=== PATIENT | female | born 1960 | race Caucasian/White ===

== ENCOUNTER 2016-08-05 16:08 | Emergency (ER) | payer MEDICAID ==
[2016-08-05 16:48] VITALS: BMI 28.5
[2016-08-05 16:51] VITALS: TEMP 98.4
[2016-08-05] MEDS ORDERED: HYDROmorphone 1 MG INJECTION IV ONE ×2 (17:07→18:20)
--- NOTE | 2016-08-05 17:41 | DIRPT ---
CLINICAL DATA: Fall. EXAM: LEFT ELBOW - COMPLETE 3+ VIEW COMPARISON: None. FINDINGS: There is no evidence of fracture, dislocation, or joint effusion. There is no evidence of arthropathy or other focal bone abnormality. Soft tissues are unremarkable. IMPRESSION: Negative. Electronically Signed By: Marisa Winston M.D. On: 08/05/2016 17:38
--- NOTE | 2016-08-05 17:42 | DIRPT ---
CLINICAL DATA: Fell playing in the snow EXAM: LEFT WRIST - COMPLETE 3+ VIEW COMPARISON: None. FINDINGS: Comminuted fracture distal radial metaphysis with overriding at the fracture site. Fracture line extends into the radiocarpal joint. There is a moderately displaced fracture of the ulnar styloid process which is displaced proximally and in an ulnar direction. There is moderate apex volar angulation involving the radial fracture. IMPRESSION: Fractures of the distal radius and ulna Electronically Signed By: Kristian Horton M.D. On: 08/05/2016 17:39
--- NOTE | 2016-08-05 18:00 | EDPRACDOC ---
- General Information Information Source: Patient - History of Present Illness Onset: 1 HOUR HPI: PT PRESENTS TODAY WITH LEFT WRIST PAIN AFTER FOOS[employer]. APPARENT DEFORMITY. NO OTHER COMPLAINTS. Location: Reports: Radial Mechanism: Reports: FOOSH Circumstances: Reports: Fall Pain Severity: Reports: Severe Associated Signs and Symptoms: Reports: None <Julia Bernabe - Last Filed: 08/05/16 17:58> <Kinsey Escobedo - Last Filed: 08/05/16 19:50> <Yarelis Bunn - Last Filed: 08/05/16 20:17> - General Information Chief Complaint: Wrist Pain Stated Complaint: FALL Time Seen by Provider: 08/05/16 16:59 Home Medications: Home Medications Fluoxetine [Prozac] 40 mg PO DAILY 05/30/16 Oxycodone Immediate Release [Oxycodone Immediate Release (OxyIR)] 5 - 15 mg PO Q4H PRN #30 tab 08/05/16 Allergies/Adverse Reactions: Allergies Allergy/AdvReac Type Severity Reaction Status Date / Time No Known Allergies Allergy Verified 08/05/16 16:48 ED Past Medical History - History Reviewed Yes Nurses notes reviewed and agree except as marked - Patient Medical History Respiratory History: Reports: COPD Psychological History: Denies: Depression Systemic History: Reports: Hyperthyroidism, Hypothyroidism - Social Medical History Smoking Status: Heavy tobacco smoker (5 or more cigarettes/day or daily pipe/ cigar) <Julia Bernabe - Last Filed: 08/05/16 17:58> EDM Review of Systems - Review of Systems ROS Negative Except as Marked: Yes All systems reviewed and were negative except as marked Constitutional: No Symptoms Reported Respiratory: No Symptoms Reported Cardiovascular: No Symptoms Reported Gastrointestinal: No Symptoms Reported Neurological: No Symptoms Reported Musculoskeletal: Wrist Integumentary: No Symptoms Reported <Julia Bernabe - Last Filed: 08/05/16 17:58> - Physical Exam Constitutional: Alert, Distress Oriented to: Time, Person, Place Last recorded Vital Signs: Last Vital Signs Temp 98.4 F 08/05/16 16:48 Pulse 86 08/05/16 17:31 Resp 22 08/05/16 17:31 BP 163/83 08/05/16 17:31 Pulse Ox 97 08/05/16 17:31 Oxygen Pulse Oxygen Saturation 97 O2 Device Room Air Oxygen Flow Rate Fraction of Inspired Oxygen ( FIO2) - HEENT Head: Normal Eye Exam: Normal Neck: Normal, Denies Pain, Midline - Respiratory/Cardiovascular Respiratory: Normal - CTA Cardiovascular: Normal - GI Palpation: Normal Tenderness: Non tender - Musculoskeletal Back: Normal Extremities: Other (APPARENT DEFORMITY TO LEFT WRIST; WRIST SKIN FEELS COOL, BUT RADIAL PULSES INTACT; CAP REFILL SLUGGISH.) - Integumentary Skin: Normal Lymphatics: Normal - Neurologic Cerebellar: Normal Mood Description: Normal Thought: Coherent Perception: Normal <Julia Bernabe - Last Filed: 08/05/16 17:58> - Physical Exam Last recorded Vital Signs: Last Vital Signs Temp 98.4 F 08/05/16 16:48 Pulse 84 08/05/16 18:36 Resp 18 08/05/16 18:36 BP 162/82 08/05/16 18:36 Pulse Ox 97 08/05/16 18:36 Oxygen Pulse Oxygen Saturation 97 O2 Device Room Air Oxygen Flow Rate Fraction of Inspired Oxygen ( FIO2) <Kinsey Escobedo - Last Filed: 08/05/16 19:50> - Physical Exam Last recorded Vital Signs: Last Vital Signs Temp 98.4 F 08/05/16 16:48 Pulse 84 08/05/16 18:36 Resp 18 08/05/16 18:36 BP 162/82 08/05/16 18:36 Pulse Ox 97 08/05/16 18:36 Oxygen Pulse Oxygen Saturation 97 O2 Device Room Air Oxygen Flow Rate Fraction of Inspired Oxygen ( FIO2) <Yarelis Bunn - Last Filed: 08/05/16 20:17> ED Wrist Problem Exam Wrist Symptoms: Swelling, Deformity, Limited ROM, Severe Tenderness Hand Symptoms: Normal Forearm Symptoms: Normal Distal Function/Circulation: Capillary Refill (DELAYED) - Integumentary Skin: Ecchymosis Lymphatics: Normal <Julia Bernabe - Last Filed: 08/05/16 17:58> ED Procedures - Fracture/Dislocation Reduction Informed of risks, benefits and alternatives described.: Yes Informed Consent Signed: Written Indication: Dislocation, Fracture Attempted reduction was performed: Yes Reduction Attempts: 1 Sedation performed under my direct supervision See flowsheet: No (Dr Bunn) Joint Reduction Site: Other (L wrist) Pre-Procedure NV Exam: Yes After procedure patient's symptoms were relieved: Yes Post Procedure Nerve Exam: full sensation in all fingers and thumb, cap refill less than 3 secs <Kinsey Escobedo E - Last Filed: 08/05/16 19:50> - Splinting 1st splint Location: LEFT WRIST Hand-Made Type: orthoglass Splint: sugar-tong Pre-Proc Neuro Vasc Exam: normal Post-Proc Neuro Vasc Exam: normal Other Devices: Sling <Yarelis Bunn N - Last Filed: 08/05/16 20:17> - Physician Consulted Orthopedics Time Called: 18:00 Provider Called: Elieser García <Julia Bernabe K - Last Filed: 08/05/16 17:58> <Kinsey Escobedo - Last Filed: 08/05/16 19:50> - Departure Education/Counseling Given To: Patient, Family Member Education/Counseling Given Regarding: Diagnosis, Treatment, Prognosis - Physician Consulted ORTHO #2 Time Called: 20:08 Provider Called: Elieser García <Yarelis Bunn N - Last Filed: 08/05/16 20:17> - Departure Condition: Stable Final Diagnosis: Closed fracture distal radius and ulna Qualifiers: Encounter type: initial encounter Laterality: left Qualified Code(s): S52.502A - Unspecified fracture of the lower end of left radius, initial encounter for closed fracture; S52.602A - Unspecified fracture of lower end of left ulna, initial encounter for closed fracture Instructions: Wrist Fracture in Adults (ED), RICE: Routine Care for Injuries Referrals: Elieser García MD [Staff Physician] - One Week Prescriptions: Oxycodone Immediate Release [Oxycodone Immediate Release (OxyIR)] 5 - 15 mg PO Q4H PRN #30 tab PRN Reason: Pain ED-Moderate Sedation Procedure - Procedure Indication: LEFT WRIST REDUCTION Informed of risks, benefits and alternatives described.: Yes Informed Consent Signed: Written ASA Status: 1 Physician Performing Procedure: Yes Physician Providing Sedation: Bunn Procedure Type: LEFT WRIST REDUCTION Procedure Start Time: 19:40 - Patient Information Patient Age: 56 History and Physical Completed: Yes - Oxygen Oxygen Delivery Method: Nasal Cannula - Alarm Mechanic Alarm Mechanic: Yes EKG Rhythm: Sinus Rhythm - Medications Dose #1 Administration Time: 19:40 Medication Given: Propofol Dose Given: 90 Medication Unit: mg Route: IV Patient Reaction: Awake Dose #2 Administration Time: 19:42 Medication Given: Propofol Dose Given: 30 Medication Unit: mg Route: IV Patient Reaction: Awake Dose #3 Administration Time: 19:44 Medication Given: Propofol Dose Given: 30 Medication Unit: mg Route: IV Patient Reaction: Awake - Assessment Skin: Warm - Adverse Event Adverse Event: No <Yarelis Bunn - Last Filed: 08/05/16 20:17>
[2016-08-05] MEDS ORDERED: PROPOFOL 200 MG/20 ML VIAL IV ONE (19:35)
--- NOTE | 2016-08-05 20:09 | DIRPT ---
CLINICAL DATA: Postreduction. EXAM: LEFT WRIST - 2 VIEW COMPARISON: Wrist radiograph from the same date. FINDINGS: Cast material overlies the wrist. There has been interval reduction of transverse comminuted posteriorly dislocated intra-articular fracture of the distal radius with near anatomic alignment. Again seen is avulsion fracture of the ulnar styloid process. IMPRESSION: Status post reduction with near anatomic alignment of previously described distal radial shaft intra-articular fracture. Avulsion fracture of ulnar styloid process also demonstrates interval reduction with satisfactory alignment. Electronically Signed By: Alvarado Archibald M.D. On: 08/05/2016 20:07
[2016-08-05] MEDS ORDERED: OXYCODONE HCL 5 MG TABLET PO ONE (20:17)
[2016-08-05 21:29] VITALS: BP 160/73; PULSE 92
== END 2016-08-05 21:25 | disposition home or self-care (01) ==
LOC: ED 16:08
DX: S52.502A Unspecified fracture of the lower end of left radius, initial encounter for closed fracture (principal); S52.602A Unspecified fracture of lower end of left ulna, initial encounter for closed fracture; W18.30XA Fall on same level, unspecified, initial encounter; Y93.9 Activity, unspecified
CPT/HCPCS: 25605; 73080; 73100; 73110; 96374; 96376; 99152; 99284; J1170; J3490

== ENCOUNTER → 2016-08-24 | Day surgery (SDC) | payer MEDICAID ==
[2016-08-05 16:48] VITALS: BMI 28.5
[~2016-08-24] MED LIST: BUPIVACAINE 0.5% 30 ML VIAL ONE; CEFAZOLIN 1 GM VIAL IV ONE; CEFAZOLIN 1 GM VIAL ONE; DEXAMETHASONE 4 MG/ML VIAL IV ONE; EPHEDrine 50 MG/ML VIAL IM ONE; FENTANYL 100 MCG/2 ML VIAL IV PRN; FENTANYL 100 MCG/2 ML VIAL ONE; FENTANYL 250 MCG/5 ML VIAL IV ONE; GLYCOPYRROLATE 1 MG VIAL IM ONE; HYDROmorphone 1 MG INJECTION IV PRN; HYDROmorphone 1 MG INJECTION ONE; LABETALOL 20 MG/4 ML SYRINGE IV PRN; LIDOCAINE 1% 30 ML VIAL (PRESERVATIVE FREE) ONE; LIDOCAINE 100 MG PFS IV ONE; MEPERIDINE 25 MG/ML TUBEX IV PRN; MIDAZOLAM 2 MG/2 ML VIAL IV ONE; ONDANSETRON HCL 4 MG ODT TAB PO PRN; ONDANSETRON HCL 4 MG/2 ML VIAL IV ONE; ONDANSETRON HCL 4 MG/2 ML VIAL IV PRN; PROPOFOL 200 MG/20 ML VIAL IV ONE; hydrALAZINE 20 MG/ML VIAL IV PRN
--- NOTE | 2016-08-24 07:05 | HIM.ANES ---
Anesthesia Evaluation & Plan Consented Procedure: OPEN REDUCTION INTERNAL FIXATION LEFT DISTAL RADIUS AND OTHER PROCEDURES INDICATED - Focused Review of Systems Now: No Cardiac History: No: Hx Cardiac Disorders HEENT: Yes: Cataracts, Cataract Removal (BILATERAL--JUNE 2016) No: Other HEENT Problems Respiratory: Yes: Hx Chronic Obstructive Pulmonary Disease (COPD), Hx Pneumonia (2016) No: Hx Recent Cold/Flu Gastrointestinal: No: Hx Gastrointestinal Disorders Neurological/Musculoskeletal: No: Hx Neurological Disorders Psychological: Yes Hx Depression, Yes Hx Mental/Emotional Disorders HX Other Psyco/Soc Problems: DEPRESSION Endocrine: Yes: Hx Hyperthyroidism, Hx Hypothyroidism Blood/Autoimmune: No: Hx AIDS, Hx Hepatitis (type) Smoking Status: Heavy tobacco smoker (5 or more cigarettes/day or daily pipe/ cigar) Surgical History: Yes: Knee (6 knee surgeries and a TKR 2001) - Focused Physical Exam NPO since: 08/23/161999 Mallampati: Class II Thyromental Distance: Greater than 3 Neck: Full Range of Motion Dental: Edentulous Cardiovascular/Chest: Normal (RRR no mumurs or rubs.) Respiratory: Lungs clear. negative: Rhonchi, Wheezing Any problems with anesthesia, including nausea and vomiting?: No Any relatives with a history of Malignant Hyperthermia?: No Does patient have a history of Malignant Hyperthermia?: No Beta Waldo given (if appropriate): N/A Does the patient have a history of Motion Sickness-: No Other: Allergies Allergy/AdvReac Type Severity Reaction Status Date / Time No Known Allergies Allergy Verified 08/24/16 06:45 Home Medications Medication Instructions Recorded Last Taken Type Fluoxetine [Prozac] 40 mg PO DAILY 05/30/16 08/23/16 09:00 History Oxycodone Immediate Release 5 - 15 mg PO Q4H PRN #30 tab 08/05/16 08/23/16 19: 00 Rx [Oxycodone Immediate Release (OxyIR)] Height and Weight Patient's height 5 ft 7 in Patient's weight 77.111 kg BMI 28.5 Vital Signs Temperature 98.9 F 08/24/16 06:43 Pulse Rate 79 08/24/16 06:43 Respiratory Rate 18 08/24/16 06:43 Blood Pressure 133/80 08/24/16 06:43 Pulse Oxygen Saturation 99 08/24/16 06:43 METS - Level of Activity: Climbing stairs(1 flight),walking level ground, running short distance - Anesthetic Plan Anesthesia Type: General ASA Class: 2 -: I have examined this patient and reviewed the medical record. The patient has been assessed prior to anesthesia. Risks and benefits of anesthesia and anesthetic technique options have been discussed and all questions answered. The patient accepts the risk and desires me to proceed with the planned anesthetic.
[2016-08-24] MEDS: FENTANYL 100 MCG/2 ML VIAL IV PRN ×2 (08:41→08:51)
[2016-08-24 08:52] VITALS: TEMP 98.3
[2016-08-24] MEDS: HYDROmorphone 1 MG INJECTION IV PRN ×2 (09:05→09:15)
--- NOTE | 2016-08-24 10:43 | HIMOP ---
DATE OF PROCEDURE: 08/24/2016 PREOPERATIVE DIAGNOSIS: Left distal radius intra-articular fracture. POSTOPERATIVE DIAGNOSIS: Left distal radius intra-articular fracture. PROCEDURE PERFORMED: Open reduction and internal fixation left distal radius fracture. SURGEON: Elieser García MD CUSTOMER SERVICE REP: Jesus Lopez PA-C. ANESTHESIA: General endotracheal anesthesia. IV FLUIDS: Crystalloids. ESTIMATED BLOOD LOSS: Minimal. SPECIMENS: None. COMPLICATIONS: None. IMPLANTS: Metaline 3-hole volar locking plate. BRIEF HISTORY: Ms. Wolfe is a [id number], who fell and sustained a left distal radius intra- articular fracture almost 3 weeks ago. She was treated conservatively in a cast. Subsequently she presented in the clinic at 2 weeks and showed displacement of the fracture with radial shortening as well as displacement of the fracture. The patient based on the nature of the fracture, who was advised for an open reduction and internal fixation. The patient understood that the risks involved in surgery include infection, continued pain, DVT, pulmonary embolism, stroke, and even . She volunteered an informed consent. The patient was seen on the day of surgery in the preop holding area. Surgical site was marked. The patient was then wheeled back into the operating room. DESCRIPTION OF THE PROCEDURE: The patient was placed supine on the operating table. Proper timeout was performed. A 2 g of IV Ancef was given. Left upper extremity was prepped and draped. A tourniquet above the left elbow was applied. After limb exsanguination, we started with a volar Mj approach. Skin and deep fascia were incised. The flexor carpi radialis tendon was retracted towards the radial side. The pronator quadratus was incised longitudinally and the fracture site was exposed. There was volar displacement of the fracture, as well as in the radial dissection. Fracture reduction was achieved by removing some of the interposed muscle as well as the callus at the fracture site. The reduction was confirmed under AP and lateral C-arm images. The reduction was maintained using 0.62 K-wire. This was followed by application of a 3-hole volar locking plate that was fixed initially to the proximal fragment with a nonlocking screw. This was followed by application of both locking and nonlocking screws through the subarticular portion of the plate. Final AP and lateral x-rays were obtained. The tourniquet was released. Hemostasis was achieved. The wound was closed in layers. Volar splint was applied. The patient tolerated the procedure very well and was taken to the recovery room in a stable condition. DISPOSITION: The patient would be discharged home today. She will follow up in the clinic in 2 weeks. [id number]
[2016-08-24 10:49] VITALS: PULSE 97
[2016-08-24 13:54] VITALS: BP 144/79
--- NOTE | 2016-08-24 13:54 | SC.ANESPOS ---
Post-Anesthesia Note LOC: Fully Awake Post-Anesthesia Assessment: Awake, Returned to Baseline, Hemodynamically Stable , Pain Control Adequate Phase I & II Recovery Complete: Yes Apparent Anesthesia Complication: No : N PACU Discharge Time: 09:55 - Vital Signs Blood Pressure: 144/79 Pulse: 97 Resp Rate: 16 O2 Sat: 96 Temp: 98.3 F - Comments Anesthesia Discharge Time Report Time 09:55
== END ==
LOC: SDC 06:05
PROVIDERS: ATTEND Orthopaedic Surgery
PROC: 0PSJ04Z Reposition Left Radius with Internal Fixation Device, Open Approach (ICD-10-PCS; principal; 2016-08-24 07:15)
DX: S52.572A Other intraarticular fracture of lower end of left radius, initial encounter for closed fracture (principal); J44.9 Chronic obstructive pulmonary disease, unspecified; F32.9 Major depressive disorder, single episode, unspecified; E03.9 Hypothyroidism, unspecified; M10.9 Gout, unspecified; F17.210 Nicotine dependence, cigarettes, uncomplicated; Z79.899 Other long term (current) drug therapy; W19.XXXA Unspecified fall, initial encounter
CPT/HCPCS: 25608; J0690; J1100; J1170; J2001; J2250; J2405; J3010; J3490